=== PATIENT | male | born 1940 | race Caucasian/White ===

== ENCOUNTER → 2019-11-15 08:42 | Outpatient (BNVA) | payer MEDICARE, OTHER, SELFPAY | PROVIDERS: Family Provider Family Medicine; PCP Family Medicine; Visit Provider Urology | DX: R97.20 Elevated prostate specific antigen [PSA] (principal); N39.9 Disorder of urinary system, unspecified | CPT/HCPCS: 84153 ==

== ENCOUNTER → 2020-08-14 08:46 | Outpatient (BNVA) | payer MEDICARE, OTHER, SELFPAY | PROVIDERS: Family Provider Family Medicine; PCP Family Medicine; Visit Provider Urology | DX: R97.20 Elevated prostate specific antigen [PSA] (principal) | CPT/HCPCS: 81003; 84153 ==

== ENCOUNTER → 2021-02-11 08:39 | Outpatient (BNVA) | payer MEDICARE, OTHER, SELFPAY | PROVIDERS: Family Provider Family Medicine; PCP Family Medicine; Visit Provider Urology | DX: R97.20 Elevated prostate specific antigen [PSA] (principal); N39.9 Disorder of urinary system, unspecified | CPT/HCPCS: 84153 ==

== ENCOUNTER → 2021-02-14 09:31 | Outpatient (BNVA) | payer MEDICARE, OTHER, SELFPAY | PROVIDERS: Family Provider Family Medicine; PCP Family Medicine; Visit Provider Urology | DX: R97.20 Elevated prostate specific antigen [PSA] (principal); K59.00 Constipation, unspecified | CPT/HCPCS: 81003 ==

== ENCOUNTER 2021-08-08 08:21 | Outpatient (CLI) | payer MEDICARE, OTHER, SELFPAY ==
--- NOTE | 2021-08-08 09:05 | CT_ITS ---
WS: [id number] CT ABDOMEN PELVIS TECHNIQUE: Contrast-enhanced CT of the abdomen and pelvis with coronal and sagittal reformatted image s. CLINICAL INFORMATION: RENAL MASS, BLADDER MASS COMPARISON: Ultrasound July 31, 2021 DLP: 1050.[address] scans at [facility] use at least one of these dose optimization techniques: automated e xposure control; mA and/or kV adjustment per patient size (includes targeted exams where dose is matc hed to clinical indication); or iterative reconstruction. FINDINGS: Markedly enlarged heterogeneous enhancing nodular prostate with bladder invasion. Prostate measures a pproximately 4.3 x 7.3 x 9.5 cm AP by transverse by craniocaudal. This corresponds to the bladder mas s seen on the ultrasound. Urine distended bladder. Thickening of the seminal vesicles bilaterally wit h suspected extracapsular prostate invasion. Numerous tiny lymph nodes about the seminal vesicles. Pr ostate directly abuts the rectum dorsally. Suspicious 8 mm right pelvic sidewall lymph node. Normal renal parenchymal enhancement. No hydronephrosis. No suspicious lesions to correspond to the u ltrasound findings. Numerous tiny low-attenuation lesions in the liver some too small to characterize likely hepatic cyst s. Mild diffuse fatty infiltration liver. Normal portal vein and splenic vein. Gallbladder is contrac mirna. Normal spleen. Normal GE junction. Tiny noncalcified nodule left lower lobe laterally measuring 5 mm. Normal pancreatic parenchymal enha ncement. Normal caliber abdominal aorta. Aortic calcification. Normal sigmoid colon. No evidence of h igh-grade small or large bowel obstruction. No periaortic lymphadenopathy. No inguinal lymphadenopath y. CT/CT abdomen pelvis w con* [id number] IMPRESSION: 1. Diffuse heterogeneous nodular markedly enlarged prostate with bladder invas ion corresponds to the ultrasound mass. Suspected extracapsular invasion with i nvolvement of the seminal vesicles and periprosthetic fat. Induration in the se rito vesicles with several tiny lymph nodes. 2. Suspicious lymph node along the right pelvic sidewall measuring 8 mm. 3. No abdominal lymphadenopathy. 4. Normal renal parenchymal enhancement. No hydronephrosis. No renal lesions. 5. Urine distended bladder. 6. Numerous low-attenuation lesions in the liver likely hepatic cysts. Some ar e too small to characterize. 7. Tiny noncalcified nodule left lower lobe laterally measuring 5 mm
[2021-08-08] MEDS: iohexol 300 mg/mL 100 mL Btl IV (10:01)
[2021-08-08] MEDS: iohexol 300 mg/mL 50 mL Btl PO (10:02)
[2021-08-08 12:56] LABS: Blood Urea Nitrogen 10 mg/dL (8-23)
== END 2021-08-08 08:22 | disposition home or self-care (01) ==
PROVIDERS: PCP Family Medicine; Visit Provider Family Medicine
DX: N28.89 Other specified disorders of kidney and ureter (principal); R19.09 Other intra-abdominal and pelvic swelling, mass and lump; N40.0 Benign prostatic hyperplasia without lower urinary tract symptoms; N32.89 Other specified disorders of bladder; K76.9 Liver disease, unspecified; R91.1 Solitary pulmonary nodule
CPT/HCPCS: 74177; 82565; 84520; Q9967

== ENCOUNTER → 2021-08-15 08:48 | Outpatient (BNVA) | payer MEDICARE, OTHER, SELFPAY | PROVIDERS: PCP Family Medicine; Visit Provider Urology | DX: R97.20 Elevated prostate specific antigen [PSA] (principal) | CPT/HCPCS: 84153 ==

== ENCOUNTER → 2021-09-16 16:10 | Outpatient (BNVA) | payer MEDICARE, OTHER, SELFPAY | PROVIDERS: PCP Family Medicine; Referring Provider Family Medicine; Visit Provider Surgery | DX: Z20.822 Contact with and (suspected) exposure to COVID-19 (principal); R19.4 Change in bowel habit | CPT/HCPCS: 87635 ==

== ENCOUNTER 2021-09-18 06:40 | Day surgery (SDC) | payer MEDICARE, OTHER, SELFPAY ==
[2021-09-17 13:29] VITALS: BMI 27.4
--- NOTE | 2021-09-18 07:16 | ANES.PREANE2 ---
Pre-Anesthetic Assessment Pre-Anesthetic Assessment: Height/Weight: Height 1.65 m Weight 74.843 kg Preop Diagnosis: Rectal pain and difficulty in defecation Proposed Procedure: Operation Date: 09/18/21 07:45 Proposed Procedures p Colonoscopy 94350 R14.9(Not Applicable) - Abhilash Mendoza MD Familial anesthetic complications: None Last intake: > 8 hrs Social: Social History: Alcohol and No tobacco Comment: 3-4 beers a day, 1 glass of wine with supper Exam: Pre-Anes Outpt Exam: alert, oriented x 3, clear to auscultation bilaterally and regular rate & rhythm Airway: MP: 1 Dentition: Other (no teeth) Additional comments: full ponce : Comments: bladder mass Anesthetic Plan: ASA status: 2 Anesthesia: MAC Risk of > 500 ml blood loss (7ml/kg in children): No PFSH Anesthesia PFSH: Medical History Elevated PSA Gross hematuria Rectal pain Surgical History H/O plastic surgery NASAL SURGERY/REPAIR H/O prostate biopsy Family History Father , 80 Diabetes Mother No problems noted. Social History Alcohol intake: current Alcohol intake frequency: 0-2 Drinks per Day Alcohol type: wine Adopted: No Caregiver/support person: No Lives independently: No Household members: spouse Marital status: Current occupational status: retired History of recent travel: No Data Anesthesia Cardiac Studies: No Data to Display
[2021-09-18 07:38] VITALS: BP 134/80; PULSE 80; RESP 18; TEMP 36.7; O2SAT 98
[2021-09-18] MEDS: sodium chloride 0.9% 1,000 ML 30 ML IV (07:42)
--- NOTE | 2021-09-18 08:13 | W.PM.OPSUD ---
Surgery/Procedure H&P Update DATE OF PROCEDURE: September 18, 2021 DATE H&P PERFORMED: 09/16/21 H&P UPDATE INFORMATION: I have reviewed H&P completed within last 30 days, I have examined patient prior to procedure and Changes to prior documentation as noted here CHANGES TO PREVIOUS DOCUMENTATION: Patient reports that he has been experiencing urine in stool which raises the suspicious and concern for rectovesical fistula PREOP DIAGNOSIS: Rectal pain and difficulty in defecation PRIMARY INDICATION FOR PROCEDURE: The same PLANNED PROCEDURE: Operation Date: 09/18/21 07:45 Proposed Procedures p Colonoscopy 63366 R14.9(Not Applicable) - Abhilash Mendoza MD
[2021-09-18 09:26] VITALS: BP 93/67; PULSE 80; RESP 12; TEMP 36.1; O2SAT 94
--- NOTE | 2021-09-18 09:28 | ANE.PACU2 ---
Inpatient post-anesthesia follow up: Airway intact: Yes Vital signs: Temperature 98.0 F Pulse Rate 80 Respiratory Rate 18 Blood Pressure 134/80 Pulse Oximetry 98 Oxygen Delivery Me thod Room Air Oxygen Flow Rate Fraction of Inspir ed Oxygen Hydration adequate: Yes Nausea and vomiting: No Pain level: 1 Mental status: Baseline
== END 2021-09-18 10:10 | disposition home or self-care (01) ==
PROVIDERS: PCP Family Medicine; Visit Provider Surgery
PROC: 0DJD8ZZ Inspection of Lower Intestinal Tract, Via Natural or Artificial Opening Endoscopic (ICD-10-PCS; CPT 45378; principal; 2021-09-18 07:45)
DX: K62.89 Other specified diseases of anus and rectum (principal); K63.5 Polyp of colon; K57.30 Diverticulosis of large intestine without perforation or abscess without bleeding
CPT/HCPCS: 45380; 88305; 96360; 96361; J2704; J7030

== ENCOUNTER → 2021-10-03 09:35 | Outpatient (BNVA) | payer MEDICARE, OTHER, SELFPAY | PROVIDERS: PCP Family Medicine; Visit Provider Urology | DX: R31.0 Gross hematuria (principal) | CPT/HCPCS: 81003 ==

== ENCOUNTER → 2021-10-15 08:08 | Outpatient (BNVA) | payer MEDICARE, OTHER, SELFPAY | PROVIDERS: PCP Family Medicine; Visit Provider Urology | DX: N32.89 Other specified disorders of bladder (principal) | CPT/HCPCS: 81003 ==

== ENCOUNTER 2022-04-15 08:04 | Outpatient (CLI) | payer MEDICARE, OTHER, SELFPAY | END 2022-04-15 08:05 | disposition home or self-care (01) | PROVIDERS: PCP Family Medicine; Visit Provider Urology | DX: R31.0 Gross hematuria (principal); N40.1 Benign prostatic hyperplasia with lower urinary tract symptoms; R97.20 Elevated prostate specific antigen [PSA] | CPT/HCPCS: 36415; 81003; 84153; 99213 ==

== ENCOUNTER → 2022-10-16 08:35 | Outpatient (BNVA) | payer MEDICARE, OTHER, SELFPAY | PROVIDERS: PCP Family Medicine; Visit Provider Family Medicine | DX: R97.20 Elevated prostate specific antigen [PSA] (principal) | CPT/HCPCS: 84153 ==

== ENCOUNTER → 2022-10-23 12:30 | Outpatient (BNVA) | payer MEDICARE, OTHER, SELFPAY | PROVIDERS: PCP Family Medicine; Visit Provider Urology | DX: R31.0 Gross hematuria (principal); R97.20 Elevated prostate specific antigen [PSA]; N40.1 Benign prostatic hyperplasia with lower urinary tract symptoms | CPT/HCPCS: 51798; 99213 ==

== ENCOUNTER → 2022-12-10 12:44 | Outpatient (BNVA) | payer MEDICARE, OTHER, SELFPAY | PROVIDERS: PCP Family Medicine; Visit Provider Otolaryngology | DX: R04.0 Epistaxis (principal); Z85.22 Personal history of malignant neoplasm of nasal cavities, middle ear, and accessory sinuses | CPT/HCPCS: 99203 ==

== ENCOUNTER → 2023-06-08 09:02 | Outpatient (BNVA) | payer MEDICARE, OTHER, SELFPAY | PROVIDERS: PCP Family Medicine; Visit Provider Family Medicine | DX: R31.9 Hematuria, unspecified (principal); R30.0 Dysuria; R97.20 Elevated prostate specific antigen [PSA]; K59.00 Constipation, unspecified | CPT/HCPCS: 81000; 84153; 87086 ==

== ENCOUNTER → 2023-10-07 09:40 | Outpatient (BNVA) | payer MEDICARE, OTHER, SELFPAY | PROVIDERS: PCP Family Medicine; Visit Provider Family Medicine | DX: R97.20 Elevated prostate specific antigen [PSA] (principal) | CPT/HCPCS: 84153 ==

== ENCOUNTER → 2024-04-27 07:15 | Outpatient (BNVA) | payer MEDICARE, OTHER, SELFPAY | PROVIDERS: PCP Family Medicine; Visit Provider Family Medicine | DX: R97.20 Elevated prostate specific antigen [PSA] (principal) | CPT/HCPCS: 84153 ==

== ENCOUNTER → 2024-11-04 08:00 | Outpatient (BNVA) | payer MEDICARE, OTHER, SELFPAY | PROVIDERS: PCP Family Medicine; Visit Provider Family Medicine | DX: Z51.81 Encounter for therapeutic drug level monitoring (principal); R97.20 Elevated prostate specific antigen [PSA] | CPT/HCPCS: 80053; 84153; 85025 ==

== ENCOUNTER 2024-11-05 23:17 | Emergency (ER) | payer MEDICARE, OTHER, SELFPAY ==
--- NOTE | 2024-11-05 23:24 | ED_ITS ---
HPI - Allergic Reaction 2 General: Chief complaint: Allergic Reaction Stated complaint: ALLERGIC REACTION Time Seen by Provider: 11/05/24 23:22 History of Present Illness: HPI narrative: 84-year-old male patient who was placed on Augmentin Thursday for cough congestion and sputum production. After his second dose last evening, he developed redness, burning sensation with itching across his chest and back, and some shortness of breath. He denies facial swelling, nausea, vomiting or diarrhea. He has had a temperature on and off since even prior to the Augmentin exposure. He is unsure if he has had Augmentin in the past. Related Data Home Medications Medication Instructions Recorded Confirmed psyllium husk 0.4 gram capsule 0.4 g PO DAILY 09/16/21 11/04/24 (Daily Fiber) docusate sodium 100 mg capsule 100 mg PO BID PRN 10/15/21 11/04/24 (Dulcolax Stool Softener (docusate)) Previous Rx's Medication Instructions Recorded triamcinolone acetonide 0.1 % 1 applic topical DAILY #30 grams 04/18/24 topical cream tamsulosin 0.4 mg capsule See Rx Instructions .Route 05/02/24 .COMPLEX #60 caps finasteride 5 mg tablet See Rx Instructions .Route 10/31/24 .COMPLEX #90 tabs amoxicillin 875 mg-potassium 1 tab PO BID #14 tabs 11/04/24 clavulanate 125 mg tablet doxycycline hyclate 100 mg tablet 100 mg PO BID 7 days #14 tabs 11/06/24 methylprednisolone 4 mg tablets in See Rx Instructions PO .COMPLEX 11/06/24 a dose pack (Medrol (Madhu)) #21 ea Allergies Allergy/AdvReac Type Severity Reaction Status Date / Time No Known Allergies Allergy Verified 12/10/22 12:53 PFS ED 2 PFSH: Medical History Hypertension Malignant neoplasm of nasal cavity Rectal pain Gross hematuria Elevated PSA Surgical History Hx of cataract surgery H/O prostate biopsy H/O plastic surgery NASAL SURGERY/REPAIR Family History Father , 80 Diabetes Mother No problems noted. Social History Smoking and tobacco/nicotine status: never used tobacco/nicotine Alcohol intake: current Alcohol intake frequency: 0-2 Drinks per Day Alcohol type: wine Substance/Drug Use: never Adopted: No Caregiver/support person: No Lives independently: No Household members: spouse Marital status: Current occupational status: retired Physical Exam 2 Const: COMMON NORMALS: no acute distress GENERAL APPEARANCE: cooperative; not ill appearing and not frail appearing HENMT: COMMON NORMALS: normocephalic, atraumatic and Normal external nose present HEAD & SCALP: normocephalic and atraumatic FACE & SINUS: normal facial exam and face symmetric NOSE: Normal external nose present Eye: COMMON NORMALS: Equal, round and reactive pupils present and EOMs intact bilaterally PUPIL: Yes Equal, round and reactive pupils present Neck/C-Spine: GENERAL: Yes trachea midline Chest: CHEST: Yes Symmetrical chest wall rise Resp: COMMON NORMALS: normal respiratory effort, No retractions, No use of accessory muscles and clear to auscultation bilaterally AUSCULTATION: clear to auscultation bilaterally Cardio: COMMON NORMALS: regular rate and regular rhythm RATE: regular rate RHYTHM: regular rhythm GI: COMMON NORMALS: Normal to inspection, nondistended, normoactive bowel sounds present Extremity: COMMON NORMALS: no pedal edema Neuro: CASEY COMA SCALE: document GCS findings Casey coma scale eye opening: Spontaneous Hudgins coma scale verbal response: Orientated Casey coma scale motor response: Obey commands Casey coma scale total score: 15 S ENSORY EXAM: Yes extremities (intact) Psych: COMMON NORMALS: speech normal SPEECH: Yes normal speech Skin: NARRATIVE SKIN EXAM: Widespread, beefy, convalescent erythematous rash across the chest and back. Face and extremities are largely spared. It does burton. Course 2 Vital Signs: Vital signs: Vital Signs Temperature 98.8 F 11/05/24 23:26 Pulse Rate 87 11/06/24 02:40 Respiratory Rate 18 11/06/24 02:40 Blood Pressure 141/87 11/06/24 02:40 Pulse Oximetry 93 11/06/24 02:40 Oxygen Delivery Me thod Room Air 11/06/24 00:43 MDM - Allergic Reaction Medical Decision Making 84-year-old male gentleman here with beefy, erythematous rash across his trunk anteriorly and posteriorly following exposure to Augmentin which she believes is for the first time. He has a mild elevation in his temperature. He is mildly tachycardic, which is improved after fluid and steroids here. He received 50 mg of IV Benadryl with some reduction in the burning and itching en route to the hospital. His white blood cell count is 15, likely some demargination associated. His other laboratory findings are not terribly remarkable including his urine. He is negative for COVID flu and RSV. Chest x-ray is nonacute. His tachycardia has significantly improved, the patient's symptoms have improved, he will be asked to stop the Augmentin, switch to doxycycline. Medrol has been prescribed as well. He will continue the Benadryl. He knows to return for any worsening symptoms despite the above. Lab Data 11/05/24 22:47 11/05/24 22:47 Radiology Impressions Chest X-Ray 11/05/24 23:35 IMPRESSION: No acute findings. Laboratory Results WBC 15.37 10^3/uL (3.29-11.43) H 11/05/24 22:47 RBC 5.17 10^6/uL (3.85-5.65) 11/05/24 22:47 Hgb 16.30 g/dL (11.27-16.99) 11/05/24 22:47 Hct 47.4 % (37-53) 11/05/24 22:47 MCV 91.7 fl (82-101) 11/05/24 22:47 MCH 31.5 pg (27-33) 11/05/24 22:47 MCHC 34.4 g/dL (30-55) 11/05/24 22:47 RDW 12.3 % (12.1-15.1) 11/05/24 22:47 Plt Count 440 10^3/cmm (157-399) H 11/05/24 22:47 MPV 8.6 fL (7.4-10.4) 11/05/24 22:47 Neut % (Auto) 90.2 % 11/05/24 22:47 Lymph % (Auto) 5.5 % 11/05/24:47 Marion % (Auto) 3.2 % 11/05/24 22:47 Eos % (Auto) 0.6 % 11/05/24 22:47 Baso % (Auto) 0.2 % 11/05/24 22:47 Neut # (Auto) 13.88 10^3/uL (1.8-7.7) H 11/05/24:47 Lymph # (Auto) 0.8 10^3/uL (0.8-4.8) 11/05/24 22:47 Marion # (Auto) 0.5 10^3/uL (0.2-0.9) 11/05/24 22:47 Eos # (Auto) 0.1 10^3/uL (0.0-0.8) 11/05/24 22: Baso # (Auto) 0.0 10^3/uL (0.0-0.1) 11/05/24: Nucleated RBC % (auto) 0 % 11/05/24: Nucleated RBCs # 0.0 /100WBC 11/05/24 22:47 Sodium 134 mmol/L (136-145) L 11/05/24 22:47 Potassium 4.6 mmol/L (3.5-5.1) 11/05/24 22:47 Chloride 97 mmol/L (98-107) L 11/05/24 22:47 Carbon Dioxide 25 mmol/L (22-29) 11/05/24 22:47 Anion Gap 16.6 (5-19) 11/05/24 22:47 BUN 15 mg/dL (8-23) 11/05/24 22:47 Creatinine 0.8 mg/dL (0.7-1.2) 11/05/24 22:47 GFR Calculation Not Reportable 11/05/24 22: Glucose 110 mg/dL (65-115) 11/05/24 22:47 Calculated Osmolality 279 mOsm/kg (285-295) L 11/05/24:47 Lactic Acid 1.4 mmol/L (0.5-2.2) 11/05/24 00:00 Calcium 9.3 mg/dL (8.5-10.5) 11/05/24 22:47 Total Bilirubin 0.5 mg/dL (0.15-1.2) 11/05/24 22:47 AST 15 U/L (0-40) 11/05/24 22:47 ALT 10 U/L (0-41) 11/05/24 22:47 Alkaline Phosphatase 91 U/L (40-130) 11/05/24 22:47 Total Protein 7.0 g/dL (6.6-8.7) 11/05/24 22:47 Albumin 4.1 g/dL (3.5-5.2) 11/05/24 22:47 Globulin 2.9 g/dL (1.3-4.6) 11/05/24 22:47 Urine Color Yellow (Yellow) 11/06/24 01:39 Urine Appearance Clear (CLEAR) 11/06/24 01:39 Urine pH 6.5 (5-7) 11/06/24 01:39 Ur Specific Lockney 1.016 (1.005-1.030) 11/06/24 01:39 Urine Protein 2+ (Negative) A 11/06/24 01:39 Urine Glucose (UA) Negative (Normal) 11/06/24 01:39 Urine Ketones Negative (Negative) 11/06/24 01:39 Urine Blood Negative (Negative) 11/06/24 01:39 Urine Nitrate Negative (Negative) 11/06/24 01:39 Urine Bilirubin Negative (Negative) 11/06/24 01:39 Urine Urobilinogen 0.2 mg/dL (Negative) 11/06/24 01:39 Ur Leukocyte Esterase Negative (Negative) 11/06/24 01:39 Urine RBC 0-2 /hpf (0-2) 11/06/24 01:39 Urine WBC 0-5 /hpf (0-5) 11/06/24 01:39 Ur Squamous Epith Cells 0-5 /hpf (0-5) 11/06/24 01:39 Amorphous Sediment Not Reportable 11/06/24 01:39 Urine Bacteria None seen /hpf (NONE) 11/06/24 01:39 Hyaline Casts 0-4 /lpf H 11/06/24 01:39 Coronavirus (PCR) Negative (Negative) 11/06/24 00:06 Influenza A (PCR) Negative (Negative) 11/06/24 00:06 Influenza Type B (PCR) Negative (Negative) 11/06/24 00:06 RSV (PCR) Negative (Negative) 11/06/24 00:06 XR interpretation done by ED provider, pending radiology final review Discharge Plan Discharge Patient Disposition: Home Clinical Impression: Allergic reaction Qualifiers: Encounter type: initial encounter Qualified Code(s): T78.40XA - Allergy, unspecified, initial encounter Condition: Stable Prescriptions: New doxycycline hyclate 100 mg tablet 100 mg PO BID 7 Days Qty: 14 0RF methylprednisolone [Medrol (Madhu)] 4 mg tablets,dose pack See Rx Instructions .ROUTE .COMPLEX Qty: 21 0RF Rx Instructions: orally per package directions No Action docusate sodium [Dulcolax Stool Softener (dss)] 100 mg capsule 100 mg PO BID PRN psyllium husk [Daily Fiber] 0.4 gram capsule 0.4 g PO DAILY amoxicillin-pot clavulanate 875-125 mg tablet 1 tab PO BID Qty: 14 0RF triamcinolone acetonide 0.1 % cream 1 applic topical DAILY Qty: 30 6RF tamsulosin 0.4 mg capsule See Rx Instructions .ROUTE .COMPLEX Qty: 60 9RF Dose Instruction: TAKE 1 CAPSULE BY MOUTH EVERY EVENING Rx Instructions: TAKE 2 CAPSULEs BY MOUTH EVERY EVENING finasteride 5 mg tablet See Rx Instructions .ROUTE .COMPLEX Qty: 90 3RF Dose Instruction: TAKE 1 TABLET BY MOUTH EVERY DAY Rx Instructions: TAKE 1 TABLET BY MOUTH EVERY DAY Discharge Orders: Discharge ED (Routine); Ordered 11/06/24 Ordered By: Prasad Cheung Referrals: Guerrero Montalvo MD [Primary Care Provider] - 1-3 days Patient Instructions: Allergic Reaction, Opioid Safety, Pain Management Activity Restrictions/Additional Instructions: Stop the amoxicillin/clavulanate you were prescribed in favor of the new antibiotic prescribed. You may start this antibiotic in the morning. Other medication as directed. Take Benadryl 25 mg every 6 hours while awake for the first 48 hours, then as needed for redness, itching, etc. following that. Return for continued fever despite 2-3 more doses of antibiotics, worsening redness swelling or itching despite treatment above, shortness of breath, vomiting, any other concerning symptoms. Call your doctor tomorrow for a follow-up appointment. Coding Level of Care Code ED Analytics Lead for Jelani Norris
[2024-11-05 23:26] VITALS: BP 146/94; PULSE 130; RESP 18; TEMP 37.1; O2SAT 97; BMI 28.3
--- NOTE | 2024-11-05 23:35 | XRR_ITS ---
PROCEDURE INFORMATION: Exam: XR Chest Exam date and time: 11/05/2024 11:37 PM Age: 84 years old Clinical indication: Shortness of breath; Patient HX: SOB; Cough; Congestion; HX mouth/sinus CA TECHNIQUE: Imaging protocol: Radiologic exam of the chest. Views: 1 view. COMPARISON: CT abdomen pelvis w con* [id number] 08/08/2021 9:57 AM FINDINGS: Lungs: Chronic parenchymal changes present. No consolidation. Pleural spaces: Unremarkable. No pleural effusion. No pneumothorax. Heart/Mediastinum: Unremarkable. No cardiomegaly. Bones/joints: Unremarkable. XR/XR chest 1V portable [id number] IMPRESSION: No acute findings.
[2024-11-05 23:48] LABS: Basophils % 0.2 %; Eosinophils # 0.1 10^3/uL (0.0-0.8); Eosinophils % 0.6 %; Hematocrit 47.4 % (37-53); Lymphocytes # 0.8 10^3/uL (0.8-4.8); Lymphocytes % 5.5 %; Mean Corpuscular HGB Conc 34.4 g/dL (30-55); Mean Corpuscular Hemoglobin 31.5 pg (27-33); Mean Corpuscular Volume 91.7 fl (82-101); Mean Platelet Volume 8.6 fL (7.4-10.4); Monocytes # 0.5 10^3/uL (0.2-0.9); Monocytes % 3.2 %; Neutrophils # 13.88 10^3/uL (1.8-7.7); Neutrophils % 90.2 %; Nucleated Red Blood Cells % 0 %; Platelet Count 440 10^3/cmm (157-399); Red Blood Count 5.17 10^6/uL (3.85-5.65); Red Cell Distribution Width 12.3 % (12.1-15.1); White Blood Count 15.37 10^3/uL (3.29-11.43)
[2024-11-06 00:07] LABS: Alanine Aminotransferase 10 U/L (0-41); Albumin Level 4.1 g/dL (3.5-5.2); Alkaline Phosphatase 91 U/L (40-130); Anion Gap 16.6 (5-19); Aspartate Amino Transferase 15 U/L (0-40); Blood Urea Nitrogen 15 mg/dL (8-23); Calcium 9.3 mg/dL (8.5-10.5); Carbon Dioxide 25 mmol/L (22-29); Chloride 97 mmol/L (98-107); Creatinine Clr Calc Pharmacy 67.0387; Globulin 2.9 g/dL (1.3-4.6); Glucose 110 mg/dL (65-115); Osmolality Calculated 279 mOsm/kg (285-295); Potassium 4.6 mmol/L (3.5-5.1); Sodium 134 mmol/L (136-145); Total Bilirubin 0.5 mg/dL (0.15-1.2)
[2024-11-06] MEDS: methylPREDNISolone sod succ 125 mg/2 mL INJ IVP (00:10)
[2024-11-06 00:43] VITALS: BP 146/94; PULSE 127; RESP 16; O2SAT 96
[2024-11-06 01:08] LABS: Covid PCR NEGATIVE (Negative); Influenza A NEGATIVE (Negative); Influenza B NEGATIVE (Negative); Respiratory Syncytial Virus Ce NEGATIVE (Negative)
[2024-11-06 01:24] LABS: Lactic Sepsis W/Reflex 1.4 mmol/L (0.5-2.2)
[2024-11-06 01:47] LABS: Bilirubin Urine Negative (Negative); Blood Urine Negative (Negative); Glucose Urine UA Negative (Normal); Ketones Urine Negative (Negative); Leukocyte Esterase Urine Negative (Negative); Nitrate Urine Negative (Negative); Protein Urine 2+ (Negative); Specific Gravity, Urine 1.016 (1.005-1.030); Urine Appearance Clear (CLEAR); Urine Color Yellow (Yellow); Urobilinogen Urine 0.2 mg/dL (Negative); pH Urine 6.5 (5-7)
[2024-11-06 01:52] LABS: Add Urine Microscopic? YES; Bacteria Urine None Seen /hpf; Hyaline Casts Urine 0-4 /lpf; RBC Urine 0-2 /hpf (0-2); Squamous Epithelial Cell Urine 0-5 /hpf (0-5); WBC Urine 0-5 /hpf (0-5)
[2024-11-06 02:40] VITALS: BP 141/87; PULSE 87; RESP 18; O2SAT 93
== END 2024-11-06 02:41 | disposition home or self-care (01) ==
PROVIDERS: Emergency Provider Emergency Medicine; PCP Family Medicine
DX: T78.40XA Allergy, unspecified, initial encounter (principal); X58.XXXA Exposure to other specified factors, initial encounter; Z11.52 Encounter for screening for COVID-19; C30.0 Malignant neoplasm of nasal cavity; I10 Essential (primary) hypertension
CPT/HCPCS: 36415; 71045; 80053; 81001; 83605; 85025; 87040; 87637; 96374; 99284; J2919

== ENCOUNTER → 2025-05-08 08:02 | Outpatient (BNVA) | payer MEDICARE, OTHER, SELFPAY | PROVIDERS: PCP Family Medicine; Visit Provider Family Medicine | DX: Z00.00 Encounter for general adult medical examination without abnormal findings (principal); R97.20 Elevated prostate specific antigen [PSA] | CPT/HCPCS: 80053; 84153; 85025 ==

== ENCOUNTER 2025-07-18 11:07 | Outpatient (CLI) | payer MEDICARE, OTHER, SELFPAY ==
--- NOTE | 2025-07-18 11:14 | XR_ITS ---
WS: [id number] Left knee, 3 views, 07/18/2025 Clinical Data: left knee pain Comparison: None. Findings: No fractures or dislocations are seen. The joint spaces are normal. The patella shows an anterior superior spur. The soft tissues are unremarkable. XR/XR knee LT 3V* [id number] Impression: Anterior superior patellar spur.
== END 2025-07-18 11:08 | disposition home or self-care (01) ==
LOC: RAD 11:09
PROVIDERS: PCP Family Medicine; Visit Provider Family Medicine
DX: M25.562 Pain in left knee (principal); M25.762 Osteophyte, left knee
CPT/HCPCS: 73562